=== PATIENT | female | born 1980 | race Caucasian/White ===

== ENCOUNTER 2020-12-14 22:25 | Emergency (ER) | payer OTHER ==
[~2020-12-14] VITALS: Ht 165.1 cm; Wt 99.8 kg
--- NOTE | 2020-12-14 22:48 | NUR ---
40 y/o female presents to ED for Unilateral Flank Pain - Nausea x2 days - chills. Pain is located on her Right side, 8/10, radiates towards her back, described as sharp - took a Britt at home to relieve pain to no avail. A&Ox4. Able to make needs known and take directions. Pleasant. NSR on monitor. BP 137/97 on initial assessment. No chest pain, no diaphoresis. Patient does report some chills. Lungs clear - patient overweight. Sats >94% on room air. No SOB, no dyspnea. GI/: Reports some dysuria and difficulty initiating stream. Also reports foul smelling odor. No reports of constipation to me but did mention it to flight inspector.
[2020-12-14] MEDS ORDERED: CEFTRIAXONE 1 G in IV DEXTROSE 5% 50 ML IV ONE (23:00)
[2020-12-14] MEDS ORDERED: IV NORMAL SALINE 1000 ML BAG IV ONE (23:00)
[2020-12-14] MEDS ORDERED: HYDROMORPHONE 1 MG/1 ML DISP.SYRIN IV ONE (23:00)
[2020-12-14] MEDS ORDERED: ONDANSETRON 4 MG/2 ML VIAL IV ONE (23:00)
[2020-12-14 23:07] LABS: *BILIRUBIN,URIN NEGATIVE (NEGATIVE); *CLARITY,URINE CLEAR (CLEAR); *COLOR,URINE YELLOW (YELLOW); *KETONES,URINE NEGATIVE (NEGATIVE); *UROBILINOGEN,URINE 0.2 E.U./dl (NORMAL); LEUKOCYTE ESTERASE ,URINE NEGATIVE (NEGATIVE); NITRITE, URINE NEGATIVE (NEGATIVE); PH,URINE 5.5 (5.0-8.0); UGLUCOSE NEGATIVE (NEGATIVE)
[2020-12-14 23:14] LABS: *BLOOD, URINE NEGATIVE (NEGATIVE)
[2020-12-14 23:21] LABS: BASOPHILS # (AUTO) 0.1 K/uL (0.0-8.0); BASOPHILS % (AUTO) 0.9 % (0.0-2.0); EOSINOPHILS # (AUTO) 0.4 K/uL (0.0-0.7); HEMATOCRIT 43.1 % (31.2-41.9); HEMOGLOBIN 14.5 g/dL (10.9-14.3); LYMPHOCYTES # (AUTO) 5.4 K/uL (20.0-40.0); LYMPHOCYTES % (AUTO) 37.4 % (20.5-51.5); MEAN CORPUSCULAR HGB CONC 34 g/dL (32.3-35.6); MEAN CORPUSCULAR VOLUME 85.8 fL (75.5-95.3); MONOCYTES # (AUTO) 0.9 K/uL (2.0-10.0); MONOCYTES % (AUTO) 6.4 % (0.0-11.0); NEUTROPHILS # (AUTO) 7.5 K/uL (1.8-8.9); NEUTROPHILS % (AUTO) 52.3 % (38.5-71.5); PLATELET COUNT (AUTO) 301 K/uL (179-408); RED BLOOD CELL COUNT(AUTO) 5.02 MIL/uL (3.63-4.92); WHITE BLOOD COUNT (AUTO) 14.4 K/uL (3.8-11.8)
[2020-12-14] MEDS ORDERED: ONDANSETRON 4 MG/2 ML VIAL ONE (23:21)
[2020-12-14] MEDS ORDERED: HYDROMORPHONE 1 MG/1 ML DISP.SYRIN ONE (23:21)
[2020-12-14] MEDS ORDERED: CEFTRIAXONE /D5W 50ML IVPB **ER PYXIS IV ONE (23:21)
[2020-12-14 23:33] LABS: CREATININE 1.1 mg/dL (0.6-1.3); POTASSIUM 4.2 mmol/L (3.5-5.1)
[2020-12-14 23:45] LABS: BILIRUBIN,DIRECT 0.1 mg/dL (0.0-0.2); BILIRUBIN,TOTAL 0.4 mg/dL (0.2-1.0); TOTAL PROTEIN, SERUM 7.5 g/dL (6.4-8.2)
--- NOTE | 2020-12-15 00:20 | NUR ---
CT Abdomen/Pelvis w/ contrast pending Negative Serum HCG result
[2020-12-15] MEDS ORDERED: IV NORMAL SALINE 250 ML IV ONE (00:21)
[2020-12-15] MEDS ORDERED: SWABABLE VALVE TRANSFER SET EA MC ONE (00:21)
[2020-12-15] MEDS ORDERED: IOHEXOL 300MG/ML 100 ML INFUS..BTL ONE (00:21)
[2020-12-15] MEDS ORDERED: diphenhydrAMINE 50 MG/1 ML VIAL ONE (00:37)
[2020-12-15] MEDS ORDERED: diphenhydrAMINE 50 MG/1 ML VIAL IV ONE (00:45)
[2020-12-15 00:58] LABS: *URINE HCG, QUAL NEGATIVE (NEGATIVE)
--- NOTE | 2020-12-15 01:10 | NUR ---
Patient down to CT at this time
--- NOTE | 2020-12-15 01:25 | NUR ---
Patient back from CT at this time
[2020-12-15] MEDS ORDERED: HYDROMORPHONE 1 MG/1 ML DISP.SYRIN IV ONE (01:30)
[2020-12-15] MEDS ORDERED: HYDROMORPHONE 1 MG/1 ML DISP.SYRIN ONE (01:35)
[2020-12-15] MEDS ORDERED: OXYC-128 PO (02:05)
[2020-12-15 02:12] VITALS: BP 117/71
--- NOTE | 2020-12-15 02:13 | NUR ---
Patient discharged to home in stable condition. Written and verbal after care instructions given. Patient verbalizes understanding of instructions. Stressed follow up or return to ER for worsening s/s. All belongings with patient. Steady gait. Pain improved.
== END 2020-12-15 02:10 | disposition home or self-care (01) ==
LOC: ER 22:27
DX: R10.9 Unspecified abdominal pain (principal); D72.829 Elevated white blood cell count, unspecified; Z90.49 Acquired absence of other specified parts of digestive tract; K21.9 Gastro-esophageal reflux disease without esophagitis; E78.5 Hyperlipidemia, unspecified; Z88.6 Allergy status to analgesic agent
CPT/HCPCS: 36415 ×2; 74177; 80048; 80076; 81003; 84702; 84703; 85025; 85651; 87040; 87086; 96365; 96375; 96376 ×2; 99285; J0696; J1170 ×2; J1200; J2405; Q9967; A4663; J7030; J7050

== ENCOUNTER 2021-02-04 20:12 | Emergency (ER) | payer OTHER ==
[~2021-02-04] VITALS: Ht 165.1 cm; Wt 101.2 kg
[~2021-02-04 20:12] MED LIST: OXYC-128 PO
--- NOTE | 2021-02-04 20:37 | NUR ---
Pt ambulated to ER with c/o intermittent chest pressure, PL:/10. Hand clinical support associate equal, smile normal. BLE normal strength. No c/o headache. No GI/ distress. Pt states she has history of smoking, not of controls. Bed in lowest position for safety precautions.
--- NOTE | 2021-02-04 20:40 | NUR ---
Triston Thibodeaux at bedside MSE in progress.
[2021-02-04] MEDS ORDERED: NITROGLYCERIN OINT 1 GM PACKET TP ONE ×2 (20:45→20:54)
[2021-02-04] MEDS ORDERED: NITROGLYCERIN 0.4 MG/TAB BOTTLE SL ONE ×2 (20:45→20:54)
[2021-02-04] MEDS ORDERED: ACETAMINOPHEN ES 500 MG TABLET PO ONE (20:45)
[2021-02-04] MEDS ORDERED: ASPIRIN 81 MG TAB.CHEW PO ONE (20:45)
--- NOTE | 2021-02-04 20:50 | NUR ---
Xray at bedside.
[2021-02-04] MEDS ORDERED: ASPIRIN 81 MG TAB.CHEW ONE (20:54)
[2021-02-04] MEDS ORDERED: ACETAMINOPHEN ES 500 MG TABLET ONE (20:54)
[2021-02-04 21:02] LABS: BASOPHILS # (AUTO) 0.1 K/uL (0.0-8.0); BASOPHILS % (AUTO) 0.9 % (0.0-2.0); EOSINOPHILS # (AUTO) 0.4 K/uL (0.0-0.7); EOSINOPHILS % (AUTO) 3.1 % (0.0-7.0); HEMATOCRIT 45.1 % (31.2-41.9); HEMOGLOBIN 15.2 g/dL (10.9-14.3); LYMPHOCYTES # (AUTO) 4.5 K/uL (20.0-40.0); LYMPHOCYTES % (AUTO) 35.2 % (20.5-51.5); MEAN CORPUSCULAR HEMOGLOBIN 28.7 uug (24.7-32.8); MEAN CORPUSCULAR HGB CONC 34 g/dL (32.3-35.6); MEAN CORPUSCULAR VOLUME 85.3 fL (75.5-95.3); MONOCYTES # (AUTO) 0.7 K/uL (2.0-10.0); MONOCYTES % (AUTO) 5.6 % (0.0-11.0); NEUTROPHILS # (AUTO) 7.1 K/uL (1.8-8.9); NEUTROPHILS % (AUTO) 55.2 % (38.5-71.5); PLATELET COUNT (AUTO) 319 K/uL (179-408); RED BLOOD CELL COUNT(AUTO) 5.29 MIL/uL (3.63-4.92); WHITE BLOOD COUNT (AUTO) 12.8 K/uL (3.8-11.8)
[2021-02-04 21:06] LABS: CREATININE 0.9 mg/dL (0.6-1.3); POTASSIUM 3.9 mmol/L (3.5-5.1)
[2021-02-04 21:22] LABS: BILIRUBIN,DIRECT 0.1 mg/dL (0.0-0.2); BILIRUBIN,TOTAL 0.4 mg/dL (0.2-1.0); TOTAL PROTEIN, SERUM 7.4 g/dL (6.4-8.2)
[2021-02-04] MEDS ORDERED: HYDROCODONE/APAP 5-325MG TABLET PO ONE (23:15)
[2021-02-04] MEDS ORDERED: HYDROCODONE/APAP 5-325MG TABLET ONE (23:15)
[2021-02-04] MEDS ORDERED: ONDANSETRON ODT 4 MG TAB.RAPDIS SL ONE (23:15)
[2021-02-04] MEDS ORDERED: ONDANSETRON ODT 4 MG TAB.RAPDIS ONE (23:18)
[2021-02-05] MEDS ORDERED: HYDROCODONE/APAP 5-325MG TABLET PO ONE (00:15)
[2021-02-05] MEDS ORDERED: HYDROCODONE/APAP 5-325MG TABLET ONE (00:24)
[2021-02-05] MEDS ORDERED: HYDR-4209 PO (00:41)
[2021-02-05 00:52] VITALS: BP 134/78
--- NOTE | 2021-02-05 00:54 | NUR ---
Patient discharged to home in stable condition. A/O x4, no SOB or labored breathing. Afebrile. No c/o chest pain/pressure. Written and verbal after care instructions given. Patient verbalizes understanding of instructions. Stressed follow up or return to ER for worsening s/s. Steady gait. Picked up by .
== END 2021-02-05 00:56 | disposition home or self-care (01) ==
LOC: ER 20:12
DX: R07.9 Chest pain, unspecified (principal); F17.210 Nicotine dependence, cigarettes, uncomplicated; Z90.49 Acquired absence of other specified parts of digestive tract; E66.9 Obesity, unspecified; Z68.37 Body mass index [BMI] 37.0-37.9, adult; E03.9 Hypothyroidism, unspecified
CPT/HCPCS: 36415; 70030-TC; 71045; 85025; 93005; A9150; Q0162

== ENCOUNTER 2021-05-29 19:21 | Emergency (ER) | payer OTHER ==
[~2021-05-29] VITALS: Ht 165.1 cm; Wt 99.8 kg
[~2021-05-29 19:21] MED LIST changes: +HYDR-4209 PO
[2021-05-29] MEDS ORDERED: OXYCODONE/APAP 5-325 MG TABLET PO ONE (19:45)
--- NOTE | 2021-05-29 19:52 | NUR ---
Xray at bedside.
[2021-05-29] MEDS ORDERED: OXYCODONE/APAP 5-325 MG TABLET ONE (19:53)
[2021-05-29] MEDS ORDERED: ONDANSETRON ODT 4 MG TAB.RAPDIS ONE (19:56)
[2021-05-29] MEDS ORDERED: ONDANSETRON HCL 4 MG TABLET PO ONE (20:00)
[2021-05-29] MEDS ORDERED: OXYC-128 PO (20:41)
--- NOTE | 2021-05-29 20:44 | NUR ---
Crutches dispensed. Pt instructed on proper use of crutches. Patient able to demonstrate correct use of crutches.
[2021-05-29 20:48] VITALS: BP 138/66
--- NOTE | 2021-05-29 20:48 | NUR ---
Patient discharged to home in stable condition. Written and verbal after care instructions given. Patient verbalizes understanding of instructions. Stressed follow up or return to ER for worsening s/s.
== END 2021-05-29 20:49 | disposition home or self-care (01) ==
LOC: ER 19:22
DX: S93.402A Sprain of unspecified ligament of left ankle, initial encounter (principal); W01.0XXA Fall on same level from slipping, tripping and stumbling without subsequent striking against object, initial encounter; Y92.89 Other specified places as the place of occurrence of the external cause; E03.9 Hypothyroidism, unspecified; F17.210 Nicotine dependence, cigarettes, uncomplicated; E78.00 Pure hypercholesterolemia, unspecified; E55.9 Vitamin D deficiency, unspecified
CPT/HCPCS: 73630; A4663; Q0162

== ENCOUNTER 2021-09-08 21:02 | Emergency (ER) | payer OTHER ==
[~2021-09-08] VITALS: Ht 165.1 cm; Wt 105.7 kg
[2021-09-08 23:36] LABS: HEMATOCRIT 46.4 % (31.2-41.9); MEAN CORPUSCULAR HEMOGLOBIN 29.2 uug (24.7-32.8); MEAN CORPUSCULAR VOLUME 84.9 fL (75.5-95.3); PLATELET COUNT (AUTO) 316 K/uL (179-408)
[2021-09-08 23:42] LABS: POTASSIUM 4.3 mmol/L (3.5-5.1)
[2021-09-08 23:48] LABS: BILIRUBIN,TOTAL 0.8 mg/dL (0.2-1.0); TOTAL PROTEIN, SERUM 8.3 g/dL (6.4-8.2)
--- NOTE | 2021-09-09 00:05 | NUR ---
pt in room 2b pt ambulated to room denies dizziness.
[2021-09-09] MEDS ORDERED: MORPHINE SULFATE 4 MG/1 ML DISP.SYRIN ONE (00:51)
[2021-09-09] MEDS ORDERED: FAMOTIDINE. 20 MG/2 ML VIAL IV ONE (00:51)
[2021-09-09] MEDS ORDERED: ONDANSETRON 4 MG/2 ML VIAL ONE (00:51)
[2021-09-09] MEDS: IV NORMAL SALINE 500 ML BAG IV ONE ×2 (00:53→03:22)
[2021-09-09] MEDS: MORPHINE SULFATE 4 MG/1 ML DISP.SYRIN IV ONE (00:54)
[2021-09-09] MEDS: FAMOTIDINE. 20 MG/2 ML VIAL IV ONE (00:54)
[2021-09-09] MEDS: ONDANSETRON 4 MG/2 ML VIAL IV ONE (00:55)
[2021-09-09 01:06] LABS: *URINE HCG, QUAL NEGATIVE (NEGATIVE)
[2021-09-09 01:08] LABS: *BLOOD, URINE NEGATIVE (NEGATIVE); *COLOR,URINE AMBER (YELLOW); *KETONES,URINE TRACE (NEGATIVE); *UROBILINOGEN,URINE 0.2 E.U./dl (NORMAL); LEUKOCYTE ESTERASE ,URINE NEGATIVE (NEGATIVE); NITRITE, URINE NEGATIVE (NEGATIVE); PH,URINE 5.5 (5.0-8.0); UGLUCOSE NEGATIVE (NEGATIVE)
[2021-09-09 01:10] LABS: *CLARITY,URINE HAZY (CLEAR)
[2021-09-09 01:11] LABS: *BILIRUBIN,URIN 1+ (NEGATIVE)
[2021-09-09 01:16] LABS: BACTERIA,URINE FEW /HPF (NONE SEEN); MUCUS,URINE MODERATE /LPF (0-FEW); RBC,URINE 0-3 /HPF (0-3); SQUAMOUS EPITHELIAL CELL,UR MODERATE /HPF (NONE SEEN); WBC,URINE 0-3 /HPF (0-3)
--- NOTE | 2021-09-09 01:37 | NUR ---
pt taken to cat scan.
[2021-09-09] MEDS ORDERED: IV NORMAL SALINE 250 ML IV ONE (01:47)
[2021-09-09] MEDS ORDERED: SWABABLE VALVE TRANSFER SET EA MC ONE (01:47)
[2021-09-09] MEDS ORDERED: IOHEXOL 300MG/ML 100 ML INFUS..BTL ONE (01:47)
--- NOTE | 2021-09-09 02:00 | NUR ---
pt returned from cat scan.
[2021-09-09] MEDS: METOCLOPRAMIDE HCL 10 MG/2 ML VIAL IV ONE (03:50)
[2021-09-09] MEDS ORDERED: METOCLOPRAMIDE HCL 10 MG/2 ML VIAL ONE (03:53)
--- NOTE | 2021-09-09 05:13 | NUR ---
Patient discharged to home in stable condition. Written and verbal after care instructions given. Patient verbalizes understanding of instructions. Stressed follow up or return to ER for worsening s/s. pt ambulated with steady gait, denies nausea.
[2021-09-09 05:14] VITALS: BP 106/72
== END 2021-09-09 05:15 | disposition home or self-care (01) ==
LOC: ER 21:04
DX: R11.10 Vomiting, unspecified (principal); E78.5 Hyperlipidemia, unspecified; E03.9 Hypothyroidism, unspecified; F17.210 Nicotine dependence, cigarettes, uncomplicated; Z88.8 Allergy status to other drugs, medicaments and biological substances; Z79.899 Other long term (current) drug therapy
CPT/HCPCS: 36415; 74177; 80053; 81001; 83690; 84703; 85025; 96361; 96374; 96375; 99285; J2270; J2405; J2765; J3490; Q9967; A4663; J7030; J7050

== ENCOUNTER 2022-01-02 10:52 | Emergency (ER) | payer OTHER ==
[~2022-01-02] VITALS: Ht 165.1 cm; Wt 104.3 kg
--- NOTE | 2022-01-02 11:08 | NUR ---
Dr Mcginnis at the bedside for MSE.
[2022-01-02] MEDS ORDERED: PRED50TA PO (11:16)
[2022-01-02] MEDS ORDERED: FAMO40TA71 PO (11:16)
[2022-01-02] MEDS ORDERED: CLOT12CR TP (11:16)
[2022-01-02 11:21] VITALS: BP 136/88
== END 2022-01-02 11:21 | disposition home or self-care (01) ==
LOC: ER 10:52
DX: L25.9 Unspecified contact dermatitis, unspecified cause (principal); F17.210 Nicotine dependence, cigarettes, uncomplicated; E78.5 Hyperlipidemia, unspecified; E03.9 Hypothyroidism, unspecified; E66.9 Obesity, unspecified; Z68.38 Body mass index [BMI] 38.0-38.9, adult; R03.0 Elevated blood-pressure reading, without diagnosis of hypertension; Z90.49 Acquired absence of other specified parts of digestive tract
CPT/HCPCS: A4663

== ENCOUNTER 2022-01-16 18:17 | Emergency (ER) | payer OTHER ==
[~2022-01-16] VITALS: Ht 165.1 cm; Wt 104.3 kg
[~2022-01-16 18:17] MED LIST changes: +CLOT12CR TP; +FAMO40TA71 PO; +PRED50TA PO
[2022-01-16] MEDS ORDERED: NICO1PAT44 TP (18:46)
--- NOTE | 2022-01-16 18:55 | NUR ---
PT WAS EVALUATED BY DR WOMACK. PT WAS D/C'd TO HOME. D/C INSTRUCTIONS GIVEN TO THE PT BY DR WOMACK.
[2022-01-16 18:56] VITALS: BP 136/78
== END 2022-01-16 18:56 | disposition home or self-care (01) ==
LOC: ER 18:19
DX: L23.6 Allergic contact dermatitis due to food in contact with the skin (principal); F17.210 Nicotine dependence, cigarettes, uncomplicated; E66.9 Obesity, unspecified; Z68.38 Body mass index [BMI] 38.0-38.9, adult; E03.9 Hypothyroidism, unspecified; E78.5 Hyperlipidemia, unspecified; R00.0 Tachycardia, unspecified
CPT/HCPCS: A4663

== ENCOUNTER 2022-07-24 22:25 | Emergency (ER) | payer SELFPAY ==
[~2022-07-24] VITALS: Ht 165.1 cm; Wt 99.3 kg
[~2022-07-24 22:25] MED LIST changes: +NICO1PAT44 TP
--- NOTE | 2022-07-24 22:51 | NUR ---
Patient walked to ER with steady gait c/o CP, left finger and left FA numbness.
--- NOTE | 2022-07-24 22:52 | NUR ---
Dr. Cunha at bedside for MSE.
[2022-07-24] MEDS ORDERED: ASPIRIN 81 MG TAB.CHEW ONE (22:59)
[2022-07-24] MEDS ORDERED: ASPIRIN 81 MG TAB.CHEW PO ONE (23:00)
[2022-07-24 23:26] LABS: CARBON DIOXIDE 25 mmol/L (21-32); CHLORIDE 101 mmol/L (98-107); CREATININE 0.9 mg/dL (0.6-1.3); GLUCOSE 262 mg/dL (74-106); POTASSIUM 3.7 mmol/L (3.5-5.1); UREA NITROGEN, BLOOD 19 mg/dL (7-18)
[2022-07-24 23:32] LABS: HEMATOCRIT 44.7 % (31.2-41.9); MEAN CORPUSCULAR HEMOGLOBIN 29.2 uug (24.7-32.8); MEAN CORPUSCULAR VOLUME 85.2 fL (75.5-95.3); PLATELET COUNT (AUTO) 287 K/uL (179-408)
[2022-07-24 23:38] LABS: ALANINE AMINOTRANSFERASE 72 U/L (14-59); ALKALINE PHOSPHATASE 108 U/L (50-136); ASPARTATE AMINOTRANSFERASE 43 U/L (15-37); BILIRUBIN,DIRECT 0.1 mg/dL (0.0-0.2); BILIRUBIN,TOTAL 0.4 mg/dL (0.2-1.0); TOTAL PROTEIN, SERUM 7.7 g/dL (6.4-8.2)
[2022-07-24] MEDS ORDERED: ONDANSETRON ODT 4 MG TAB.RAPDIS SL ONE (23:45)
[2022-07-24] MEDS ORDERED: HYDROCODONE/APAP 10-325 MG TABLET PO ONE (23:45)
[2022-07-25] MEDS ORDERED: HYDROCODONE/APAP 10-325 MG TABLET ONE
[2022-07-25] MEDS ORDERED: ONDANSETRON ODT 4 MG TAB.RAPDIS ONE
[2022-07-25] MEDS ORDERED: RIVA10TA PO (00:09)
[2022-07-25] MEDS ORDERED: HYDR-4209 PO (00:09)
[2022-07-25] MEDS ORDERED: ENOXAPARIN SODIUM 100 MG/ML DISP.SYRIN SQ ONE ×2 (00:15→00:16)
[2022-07-25 00:26] VITALS: BP 125/77
--- NOTE | 2022-07-25 00:27 | NUR ---
Patient discharged to home in stable condition. Written and verbal after care instructions given. Patient verbalizes understanding of instructions. Stressed follow up or return to ER for worsening s/s. Pt ambulated out of the ER with steady gait. All belongings with pt.
== END 2022-07-25 00:26 | disposition home or self-care (01) ==
LOC: ER 22:32
DX: R07.9 Chest pain, unspecified (principal); I82.461 Acute embolism and thrombosis of right calf muscular vein; R20.2 Paresthesia of skin; E11.65 Type 2 diabetes mellitus with hyperglycemia; F17.210 Nicotine dependence, cigarettes, uncomplicated; E66.9 Obesity, unspecified; Z68.36 Body mass index [BMI] 36.0-36.9, adult; E78.5 Hyperlipidemia, unspecified; Z90.49 Acquired absence of other specified parts of digestive tract; E03.9 Hypothyroidism, unspecified
CPT/HCPCS: 99285; 93971; 71045; 80076; 80048; 83880; 85025; 84484; 36415; 93005; 96372; J1650; Q0162